=== PATIENT | female | born 1995 | race Caucasian/White ===

== ENCOUNTER 2017-03-07 17:14 | Emergency (ER) | payer BC ==
[2017-03-07 17:27] VITALS: BP 100/67; PULSE 91; RESP 16; TEMP 98.6; O2SAT 98
--- NOTE | 2017-03-07 18:03 | EDPHY ---
H & P Stated Complaint: Hit face on sidewalk Tuesday олег;no LOC;+visual deficit, jimbo Time Seen by Provider: 03/07/17 17:53 HPI/ROS: CHIEF COMPLAINT: Black eye HISTORY OF PRESENT ILLNESS: The patient is a 21-year-old female who comes to the emergency department complaining of a black eye. She states that she tried to jump on someone's back 24 hours ago and fell and hit the side of her face on the cement. She has a small abrasion to the temporal region and black eye. She has mild pain with range of motion of her eyeball. She has normal vision. Her visual acuity here at triage was 20/20 in each eye. She states that she has some visual obstruction when she tries to look down because of the swelling of her cheek but does not have any visual cuts on examination. She denies headache or neck pain. REVIEW OF SYSTEMS: Constitutional: denies: chills, fever, recent illness, recent injury EENTM: denies: blurred vision, double vision, nose congestion Respiratory: denies: cough, shortness of breath Cardiac: denies: chest pain, irregular heart rate, lightheadedness, palpitations Gastrointestinal/Abdominal: denies: abdominal pain, diarrhea, nausea, vomiting, blood streaked stools Genitourinary: denies: dysuria, frequency, hematuria, pain Musculoskeletal: denies: joint pain, muscle pain Skin: denies: lesions, rash, jaundice, bruising Neurological: denies: headache, numbness, paresthesia, tingling, dizziness, weakness Hematologic/Lymphatic: denies: blood clots, easy bleeding, easy bruising Immunologic/allergic: denies: HIV/AIDS, transplant EXAM: GENERAL: Well-appearing, well-nourished and in no acute distress. HEAD: Atraumatic, normocephalic. EYES: Pupils equal round and reactive to light, extraocular movements intact, sclera anicteric, conjunctiva are normal. 20/20 vision, normal peripheral exam on confrontational exam, normal retinal exam ENT: Contusion and swelling to right eye, TMs normal, nares patent, oropharynx clear without exudates. Moist mucous membranes. The tenderness to lateral orbital rim. NECK: Normal range of motion, supple without lymphadenopathy or JVD. LUNGS: Breath sounds clear to auscultation bilaterally and equal. No wheezes rales or rhonchi. HEART: Regular rate and rhythm without murmurs, rubs or gallops. ABDOMEN: Soft, nontender, normoactive bowel sounds. No guarding, no rebound. No masses appreciated. BACK: No CVA tenderness, no spinal tenderness, step-offs or deformities EXTREMITIES: Normal range of motion, no pitting or edema. No clubbing or cyanosis. NEUROLOGICAL: Cranial nerves II through XII grossly intact. Normal speech, normal gait. 5/5 strength, normal movement in all extremities, normal sensation PSYCH: Normal mood, normal affect. SKIN: Warm, dry, normal turgor, no visible rashes or lesions. Source: Patient Exam Limitations: No limitations - Personal History LMP (Females 10-55): 22-28 Days Ago Current Tetanus Diphtheria and Acellular Pertussis (TDAP): Yes - Medical/Surgical History Hx Asthma: No Hx Chronic Respiratory Disease: No Hx Diabetes: No Hx Cardiac Disease: No Hx Renal Disease: No Hx Cirrhosis: No Hx HIV/AIDS: No Other PMH: anxiety - Family History Significant Family History: No pertinent family hx - Social History Smoking Status: Never smoked Alcohol Use: Sober Drug Use: None Constitutional: Initial Vital Signs Temperature (C) 37 C 03/07/17 17:24 Heart Rate 91 03/07/17 17:24 Respiratory Rate 16 03/07/17 17:24 Blood Pressure 100/67 03/07/17 17:24 O2 Sat (%) 98 03/07/17 17:24 O2 Delivery Mode Room Air Allergies/Adverse Reactions: No Known Allergies Allergy (Unverified 03/07/17 17:23) Home Medications: Medication Instructions Recorded ALPRAZolam [Xanax 1 MG (*)] 1 mg PO 03/07/17 Medical Decision Making - Diagnostics Imaging: Discussed imaging studies w/ home designer Radiologist ED Course/Re-evaluation: We discussed the CT results. The patient is reassured. She declines further workup or testing. She is eager to go home. We discussed follow-up and indications for returning. Head CT ordered in this adult patient for trauma for the following indication: Visual trauma, concern for eye injury or fracture Differential Diagnosis: Partial list of the Differential diagnosis considered include but were not limited to; contusion, fracture and although unlikely based on the history and physical exam, I also considered retinal detachment, lens detachment, intracranial injury, neck injury. Departure - Departure Disposition: Home, Routine, Self-Care Clinical Impression: Black eye of right side Qualifiers: Encounter type: initial encounter Qualified Code(s): S00.11XA - Contusion of right eyelid and periocular area, initial encounter Condition: Fair Instructions: Black Eye (ED) Referrals: NONE *PRIMARY CARE P,. [Primary Care Provider] - As per Instructions Keyana Mulligan MD [Medical Doctor] - As per Instructions
== END 2017-03-07 18:59 | disposition home or self-care (01) ==
DX: S00.11XA Contusion of right eyelid and periocular area, initial encounter (principal); W01.198A Fall on same level from slipping, tripping and stumbling with subsequent striking against other object, initial encounter; Y92.480 Sidewalk as the place of occurrence of the external cause; Y99.8 Other external cause status

== ENCOUNTER 2018-06-18 21:00 | Emergency (ER) | payer BC | END 2018-06-18 23:47 | disposition home or self-care (01) ==